=== PATIENT | male | born 1975 | race Two or more races ===

== ENCOUNTER 2022-07-08 21:18 | Emergency (ER) | payer OTHER ==
[~2022-07-08] VITALS: Ht 170.2 cm; Wt 122.2 kg
[2022-07-08 22:42] VITALS: BP 118/72
== END 2022-07-09 03:18 | disposition left against medical advice (07) ==
LOC: ER 21:18
DX: T23.252A Burn of second degree of left palm, initial encounter (principal); Z53.21 Procedure and treatment not carried out due to patient leaving prior to being seen by health care provider; X08.8XXA Exposure to other specified smoke, fire and flames, initial encounter; Y93.89 Activity, other specified; Y92.89 Other specified places as the place of occurrence of the external cause; Y99.8 Other external cause status